=== PATIENT | female | born 1945 | race Caucasian/White ===

== ENCOUNTER 2017-09-07 17:47 | Emergency (ER) | payer MEDICARE, MEDICAID ==
[~2017-09-07] VITALS: Ht 144.8 cm; Wt 49.5 kg
[2017-09-07 18:42] VITALS: BP 107/70
--- NOTE | 2017-09-07 20:03 | NUR ---
BIB WHEELCHAIR TO ER BED 2
--- NOTE | 2017-09-07 20:18 | NUR ---
72/F CAME IN W C/O VOMITING, FEVER AND DIZZINESS X 2 DAYS. PT CURRENTLY FEBRILE 101.2. PT REPORTS 3/10 EPIGASTRIC PAIN +TENDERNESS. ABD SOFT AND ROUND, BS ACTIVE X4, DENIES NAUSEA AND DIARRHEA AT THIS TIME. PMH: HTN
[2017-09-07] MEDS ORDERED: NACL 0.9% 500 ML IV ONE (20:30)
[2017-09-07] MEDS ORDERED: MECLIZINE 25 MG TAB PO ONE (20:30)
[2017-09-07] MEDS ORDERED: MECLIZINE 25 MG TAB ONE (20:32)
[2017-09-07 22:03] LABS: HEMATOCRIT 30.5 % (36-48); HEMOGLOBIN 10.5 g/dL (12.0-16.0); MEAN CORPUSCULAR HEMOGLOBIN 32 pg (27-31); MEAN CORPUSCULAR HGB CONC 34 g/dL (33-37); MEAN CORPUSCULAR VOLUME 93 fL (80-94); NEUTROPHILS % (AUTO) 88.5 % (42.2-75.2); PLATELET COUNT (AUTO) 143 K/uL (140-450); RED BLOOD CELL COUNT(AUTO) 3.28 MIL/uL (4.20-5.40); RED CELL DISTRIBUTION WIDTH 12.1 % (11.6-13.7); WHITE BLOOD COUNT (AUTO) 13.9 K/uL (4.8-10.8)
[2017-09-07 22:04] LABS: BASOPHILS # (AUTO) 0.1 K/uL (0.00-0.22); BASOPHILS % (AUTO) 0.4 % (0.0-2.0); EOSINOPHILS # (AUTO) 0.1 K/uL (0-0.4); EOSINOPHILS % (AUTO) 0.7 % (0.0-4.0); LYMPHOCYTES # (AUTO) 0.7 K/uL (2.5-16.5); LYMPHOCYTES % (AUTO) 5.3 % (20.5-51.1); MONOCYTES # (AUTO) 0.7 K/uL (0.8-1.0); MONOCYTES % (AUTO) 5.1 % (1.7-9.3); NEUTROPHILS # (AUTO) 12.3 K/uL (1.8-7.7)
[2017-09-07 22:25] LABS: ANION GAP 11.5 (8-16); POTASSIUM 3.5 mmol/L (3.5-5.1)
[2017-09-07 22:26] LABS: CREATININE 1.2 mg/dL (0.6-1.3)
[2017-09-07 22:29] LABS: PROTHROMBIN TIME 10.8 secs (10.8-13.4)
[2017-09-07 22:31] LABS: TOTAL BILIRUBIN 0.8 mg/dL (0.0-1.0)
[2017-09-07 22:32] LABS: ALBUMIN 2.8 g/dL (3.4-5.0)
--- NOTE | 2017-09-07 22:53 | NUR ---
Patient discharged with v/s stable. Written and verbal after care instructions given and explained. Patient alert, oriented and verbalized understanding of instructions. Ambulatory with steady gait. All questions addressed prior to discharge. ID band removed. Patient advised to follow up with PMD. Rx of SULFASALAZINE, MOTRIN ADN ZOFRAN given. Patient educated on indication of medication including possible reaction and side effects. Opportunity to ask questions provided and answered. Addendum: 09/07/17 at 2259 by SLOANE IV removed, catheter intact and site benign. Applied folded 4x4 gauze and tape to stop bleeding.
[2017-09-07 22:58] VITALS: BP 135/82
== END 2017-09-07 22:53 | disposition home or self-care (01) ==
LOC: MED 17:47
DX: K52.9 Noninfective gastroenteritis and colitis, unspecified (principal); I10 Essential (primary) hypertension
CPT/HCPCS: 36415; 70450; 74176; 80053; 85025; 85610; 85730; 96360; 99285; J7030; J8597